=== PATIENT | female | born 1975 | race Caucasian/White ===

== ENCOUNTER 2020-06-19 15:49 | Outpatient (REF) | payer OTHER, SELFPAY | END 2020-06-19 15:50 | disposition home or self-care (01) | LOC: HO.LAB 15:49 | PROVIDERS: Visit Provider Internal Medicine | DX: Z20.828 Contact with and (suspected) exposure to other viral communicable diseases (principal) | CPT/HCPCS: 87635 ==

== ENCOUNTER 2020-07-08 09:46 | Outpatient (REF) | payer OTHER, SELFPAY | END 2020-07-08 09:47 | disposition home or self-care (01) | LOC: HO.LAB 09:46 | PROVIDERS: Visit Provider Internal Medicine | DX: Z20.828 Contact with and (suspected) exposure to other viral communicable diseases (principal) | CPT/HCPCS: C9803; U0003 ==

== ENCOUNTER 2020-08-29 16:13 | Outpatient (REF) | payer OTHER, SELFPAY | END 2020-08-29 16:14 | disposition home or self-care (01) | LOC: HO.LAB 16:13 | PROVIDERS: Visit Provider Internal Medicine | DX: Z20.828 Contact with and (suspected) exposure to other viral communicable diseases (principal) | CPT/HCPCS: 36415; C9803; U0003 ==

== ENCOUNTER 2020-09-09 16:05 | Outpatient (REF) | payer OTHER, SELFPAY | END 2020-09-09 16:06 | disposition home or self-care (01) | LOC: HO.LAB 16:05 | PROVIDERS: Visit Provider Internal Medicine | DX: Z20.822 Contact with and (suspected) exposure to COVID-19 (principal) | CPT/HCPCS: 36415; C9803; U0003 ==